=== PATIENT | male | born 1990 | race Caucasian/White ===

== ENCOUNTER 2019-11-19 09:47 | Emergency (ER) | payer SELFPAY ==
[2019-11-19 10:03] VITALS: BP 136/84
== END 2019-11-19 10:00 | disposition left against medical advice (07) ==
LOC: ER 09:47
DX: Z53.21 Procedure and treatment not carried out due to patient leaving prior to being seen by health care provider (principal); R50.9 Fever, unspecified; R19.7 Diarrhea, unspecified